=== PATIENT | male | born 1980 | race African-American/Black ===

== ENCOUNTER 2017-07-05 10:48 | Emergency (ER) | payer MEDICAID, OTHER ==
[~2017-07-05] VITALS: Ht 180.3 cm; Wt 100.4 kg
[2017-07-05 14:23] VITALS: BP 146/89
[2017-07-05] MEDS ORDERED: AZITHROMYCIN 250 MG TAB PO ONE (15:45)
[2017-07-05] MEDS ORDERED: cefTRIAXone SODIUM 250 MG VL IM ONE (15:45)
== END 2017-07-05 16:18 | disposition home or self-care (01) ==
LOC: ER 10:48
DX: A64 Unspecified sexually transmitted disease (principal)
CPT/HCPCS: 96372; 99283; J0696